=== PATIENT | male | born 1930 | race African-American/Black ===

== ENCOUNTER → 2017-11-11 | Outpatient (CLI) | payer OTHER ==
[~2017-11-11] MED LIST: ADALAT CC90 MG PO; APAP500 PO; COMBIGAN EYE DR10 ML OPHTHALMIC; ENALAPRIL MALEA20 MG PO; FINASTERIDE5 MG PO; MULTIVITAMINS PO; NORCO 5-325 TA1 EACH PO; OMEPRAZOLE20 M2 PO; PERCOCET 5-3251 EACH PO; PHENERGAN 25 MG25 M1 PO; SIMVASTATIN40 MG PO; TAMSULOSIN HCL0.4 M1 PO; ZOFRAN ODT4 MG PO
== END ==
LOC: CAT 08:46
DX: I10 Essential (primary) hypertension (principal); R19.4 Change in bowel habit

== ENCOUNTER 2018-03-07 14:12 | Inpatient (IN) | payer OTHER ==
[~2018-03-07] VITALS: Ht 170.2 cm; Wt 97.5 kg
[2018-03-07 14:27] VITALS: BP 158/100
[2018-03-07 14:46] LABS: ABSOLUTE NEUTROPHILS 7.1 thou/uL (1.4-8.2); BASOPHILS 0.8 % (0.0-2.0); HEMATOCRIT 39.7 % (42.0-52.0); HEMOGLOBIN 13.6 gm/dL (14.0-18.0); LYMPHOCYTES 16.1 % (24.0-44.0); MCH 29.7 pg (26.0-34.0); MCHC 34.3 g/dL (28.0-37.0); MCV 86.6 fL (80.0-100.0); MONOCYTES 9.9 % (1.0-8.0); PLATELET COUNT 227 thou/uL (150-400); POLYS 67.2 % (36.0-66.0); RBC 4.58 mil/uL (4.50-6.00); RDW 14.9 % (10.5-14.5); WBC 10.6 thou/uL (4.0-11.0)
[2018-03-07 14:55] LABS: ANION GAP 6 mmol/L (7-16); BUN 14 mg/dL (7-18); CALCIUM 9.6 mg/dL (8.5-10.1); CHLORIDE 104 mmol/L (98-107); CO2 34 mmol/L (21-32); CREATININE 1.3 mg/dL (0.7-1.3); GLUCOSE 136 mg/dL (74-106); POTASSIUM 4.3 mmol/L (3.5-5.1); SODIUM 144 mmol/L (136-145)
[2018-03-07 15:03] LABS: ALBUMIN 3.4 g/dL (3.4-5.0); SGOT 27 U/L (15-37); SGPT 21 U/L (30-65); TOTAL BILIRUBIN 0.4 mg/dL (<0.1-1.0); TROPONIN-I <0.06 ng/mL (<0.06)
[2018-03-07] MEDS ORDERED: TROSPIUM CHLORI60 MG PO (15:20)
[2018-03-07 16:42] VITALS: BP 130/88
[2018-03-07 18:10] VITALS: BP 124/75; BP 130/75
[2018-03-07 19:05] VITALS: BP 124/80
[2018-03-08 03:38] VITALS: BP 137/84
--- NOTE | 2018-03-08 03:46 | NUR ---
ASSESSMENT: PT REMAIN ALERT AND ORIENT TIMES FOUR. UP AD SIGRID WITH STEADY GAIT. DENIES PAIN. DOES HAVE AN OCCASSIONAL NON-PRODUCTIVE COUGH. VSS, AFEBRILE. SR PER MONITOR. PT STATE THAT HE IS [employer] AND WAS "TAKEN BACK" WHEN HE GOT HIS FINGER STUCK AT HS. 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 PT SEEMED TO UNDERSTAND BUT MOST INPORTANTALY, HIS ANXIETY LEVEL WAS LOWERED. LUNGS SOUNDS REMAIN SLIGHTLY WHEEZY BUT BETTER THAN EARLIER. GOOD PROGRESS TOWARDS DC GOALS, WILL CONTINUE TO MONITOR.
[2018-03-08 07:30] VITALS: BP 131/74
--- NOTE | 2018-03-08 16:18 | NUR ---
PT STABLE THROUGHOUT SHIFT. PT HAD NO COMPLAINTS, RESTING COMFORTABLY.
[2018-03-08 16:55] VITALS: BP 143/72
[2018-03-08 19:07] VITALS: BP 129/81
[2018-03-09 03:51] VITALS: BP 108/71
--- NOTE | 2018-03-09 06:40 | NUR ---
Assumed care at 1845. Pt resting in bed. Vitals stable. No identified needs at the moment. Will continue to monitor.
[2018-03-09 07:30] VITALS: BP 123/82
--- NOTE | 2018-03-09 08:41 | EKG ---
[address] [place] [address] ELECTROCARDIOGRAM REPORT Name: SP WILSON Room #: 461-P ADM IN M.R.#: [id number] Admission: 03/07/18 Attend Phys: Tiffani Smith Discharge: Date of : 32 Report #: [id number] THIS REPORT FOR: //name// [facility] ED Test Date: 2018-03-07 Test Time: 14:21:28 Pat Name: SP WILSON Department: Room: 461 Gender: M Plate Former: DENYS : 1930 Requested By: Gertrude Santos Order Number: [id number] MD: Sánchez Almodovar Measurements Intervals [place] Rate: 102 P: 35 SC: 182 QRS: 31 QRSD: 86 T: 61 QT: 254 QTc: 331 Interpretive Statements Sinus tachycardia Atrial premature complexes Low voltage, precordial leads Nonspecific ST and T wave abnormality Compared to ECG 03/14/2012 04:48:47 Atrial premature complex(es) now present T-wave abnormality now present Electronically Signed On 03-09-2018 8:40:54 [facility] CENTER ADMINISTRATOR by Sánchez Almodovar [email or web address] <ELECTRONICALLY SIGNED> By: Sánchez Almodovar MD, FACC 03/09/18 0840 1421 1421 Sánchez Almodovar MD, [facility] /EPI
--- NOTE | 2018-03-09 13:56 | NUR ---
PT ADMITTED RELATED TO HCAP, HYPOXIA. CM REVIEWED CHART AND SPOKE WITH CARE TEAM. CM MET WITH PT AT BEDSIDE THIS DAY. PT IS A&O X4. CM ROLE INTRODUCED. PT INDICATED HE LIVES IN A SPLIT LEVEL HOUSE WITH HIS SPOUSE WITH 3 STEPS TO ENTER AND 10 STEPS INSIDE. 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 PT INDICATED NO DME OR HH HX. PT INDICATED HE PLANS TO RETURN HOME ONCE MEDICALLY STABLE. CM TO FOLLOW INDICATED WITH DC PLANNING.
[2018-03-09 14:44] VITALS: BP 139/86
--- NOTE | 2018-03-09 18:43 | NUR ---
PT STABLE THROUGHOUT SHIFT. PT HAD NO COMPLAINTS, RESTING COMFORTABLY.
[2018-03-09 19:29] VITALS: BP 150/95
--- NOTE | 2018-03-09 21:58 | NUR ---
PROGRESS PT A/O X 4, VSS, LUNGS COARSE IN UPPER LOBES AND DIMINISHED IN LOWER LOBES. NO SOA NOTED. TELE INTACT READING SR ORDER OBTAINED TO DC AND TRANSFER PT TO [facility]. EVENING MEDS GIVEN ZOSYN HANGING AND INFUSING AT 25CC PER HOUR ORDERED INTO LEFT HAND SALINE LOCK. EYE DROPS MISSING, MISSING DOSE NOTE SENT TO PHARMACY REQUESTED EYE DROPS BE DELIVERED TO [facility]. PT ON 1 LITER O2 SATS IN UPPER 90'S. TRANSFERRED TO [facility] VIA WHEELCHAIR. REPORT GIVEN TO SAGAR MARTIN FROM [facility].
--- NOTE | 2018-03-10 02:55 | NUR ---
Pt transferred to unit @2140,oriented to room/call light. Pt ia A/OX4,up ad alejandra. Denies pain on assessment. Does has TRAYLOR,on O2 @1L/NC with a non productive cough. IV abts infusing on left hand IV without any problems noted. Voiding per urinal at night but normally ambulates to the BR during the day. Call light/personal items within reach. Resting quietly with eyes closed no distress noted. Will continue to monitor pt.
[2018-03-10 07:45] VITALS: BP 126/89
--- NOTE | 2018-03-10 08:19 | NUR ---
ASSUMED PT CARE AT 0700. ASSESSMENT COMPLETED AND IS CHARTED. VITAL SIGNS STABLE. O2 91% ON ROOM AIR. EXPIRATORY WHEEZES NOTED UPON AUSCULTATION. PT REPORTS OCCASIONAL PRODUCTIVE COUGH. NO ACUTE DISTRESS NOTED. PT IS ALERT/ORIENTED X4. DENIES PAIN AT THIS TIME. WILL CONTINUE CURRENT CARE.
[2018-03-10] MEDS ORDERED: AUGMENTIN 875-1 EACH PO (08:36)
[2018-03-10 09:24] VITALS: BP 126/89
--- NOTE | 2018-03-10 14:44 | NUR ---
DISCHARGE NOTE: SW reviewed chart and spoke with nursing and attending physician. Pt was [facility] to [facility] and is medically stable for discharge home today. Pt declined HH services. Pt's family to provide transportation home. No additional SW needs identified at this time, but is available to assist should needs arise.
== END 2018-03-10 11:00 | disposition home or self-care (01) | DRG 177 ==
LOC: ER 14:12 → EROBS 16:13 → 4W 16:13 → SICU 03-09 21:39 → ENTRNSPT 03-10 10:41 → EDTRNSPTSTS 03-10 10:45 → SICU 03-10 11:00
PROVIDERS: Nurse Practitioner Family; ADMIT Hospitalist
DX: J69.0 Pneumonitis due to inhalation of food and vomit (principal); J96.90 Respiratory failure, unspecified, unspecified whether with hypoxia or hypercapnia; K21.9 Gastro-esophageal reflux disease without esophagitis; I10 Essential (primary) hypertension; E78.00 Pure hypercholesterolemia, unspecified; Z96.612 Presence of left artificial shoulder joint; E78.5 Hyperlipidemia, unspecified; N40.0 Benign prostatic hyperplasia without lower urinary tract symptoms; K59.00 Constipation, unspecified; E66.9 Obesity, unspecified; Z68.33 Body mass index [BMI] 33.0-33.9, adult; Z85.46 Personal history of malignant neoplasm of prostate; Z98.42 Cataract extraction status, left eye; Z98.41 Cataract extraction status, right eye; Z79.899 Other long term (current) drug therapy
CPT/HCPCS: 10045; 15002

== ENCOUNTER 2018-03-31 09:29 | Inpatient (IN) | payer OTHER ==
[~2018-03-31] VITALS: Ht 170.2 cm; Wt 97.1 kg
[~2018-03-31 09:29] MED LIST changes: +AUGMENTIN 875-1 EACH PO; +TROSPIUM CHLORI60 MG PO
[2018-03-31 09:49] VITALS: BP 147/99
[2018-03-31 11:52] LABS: ABSOLUTE NEUTROPHILS 4.6 thou/uL (1.4-8.2); BASOPHILS 0.4 % (0.0-2.0); EOSINOPHILS 11.6 % (0.0-3.0); HEMATOCRIT 44.1 % (42.0-52.0); HEMOGLOBIN 14.6 gm/dL (14.0-18.0); LYMPHOCYTES 19.9 % (24.0-44.0); MCH 29.4 pg (26.0-34.0); MCHC 33.2 g/dL (28.0-37.0); MCV 88.5 fL (80.0-100.0); MONOCYTES 7.4 % (1.0-8.0); PLATELET COUNT 151 thou/uL (150-400); POLYS 60.7 % (36.0-66.0); RBC 4.99 mil/uL (4.50-6.00); WBC 7.6 thou/uL (4.0-11.0)
[2018-03-31 12:04] LABS: ALBUMIN 3.6 g/dL (3.4-5.0); CALCIUM 9.7 mg/dL (8.5-10.1); CREATININE 1.1 mg/dL (0.7-1.3); MAGNESIUM 1.9 mg/dL (1.8-2.4); POTASSIUM 3.3 mmol/L (3.5-5.1); TOTAL BILIRUBIN 0.4 mg/dL (<0.1-1.0); TOTAL PROTEIN 8.1 g/dL (6.4-8.2)
--- NOTE | 2018-03-31 14:09 | NUR ---
PT RECEIVED TO RM [address] CENTENO'S OFFICE ALERT W/ AUDIBLE WHEEZING. PT O2 SAT 90% ON RA. PLACED ON 2L NC. ASSISTED TO BED. PT NOT IN ACUTE DISTRESS. ASSESSMENT COMPLETED. THERAPEUTIC RECREATION ASSISTANT IN TO SEE PT AND STAT ORDERS RECEIVED. CT CHECT NEGATIVE. DR. CANCINO IN AND TALKED W/ PT ABOUT HAVING REACTIVE AIRWAY AND PLAN FOR TREATMENT. PT RESTING COMFORTABLY. ATE ALL OF LUNCH.
[2018-03-31 15:20] VITALS: BP 141/98
[2018-03-31 19:52] VITALS: BP 142/92
[2018-03-31 21:20] LABS: URINE BILIRUBIN NEGATIVE (Negative); URINE BLOOD NEGATIVE (Negative); URINE CLARITY CLEAR; URINE COLOR YELLOW; URINE GLUCOSE-RANDOM* NEGATIVE (Negative); URINE KETONES TRACE (Negative); URINE LEUKOCYTES-REFLEX NEGATIVE (Negative); URINE NITRITE-REFLEX NEGATIVE (Negative); URINE PROTEIN (DIPSTICK) NEGATIVE (Negative); URINE SPECIFIC GRAVITY 1.015 (1.005-1.035); URINE UROBILINOGEN 0.2 E.U./dl (0.2-1.0)
[2018-04-01 04:42] LABS: CALCIUM 9.3 mg/dL (8.5-10.1); CREATININE 1.3 mg/dL (0.7-1.3); MAGNESIUM 1.7 mg/dL (1.8-2.4); POTASSIUM 3.4 mmol/L (3.5-5.1)
[2018-04-01 04:46] VITALS: BP 142/32
[2018-04-01 04:49] LABS: ABSOLUTE NEUTROPHILS 11.3 thou/uL (1.4-8.2); HEMATOCRIT 40.3 % (42.0-52.0); HEMOGLOBIN 12.8 gm/dL (14.0-18.0); LYMPHOCYTES 8.4 % (24.0-44.0); MCH 27.9 pg (26.0-34.0); MCHC 31.7 g/dL (28.0-37.0); MONOCYTES 1.7 % (1.0-8.0); PLATELET COUNT 157 thou/uL (150-400); POLYS 89.9 % (36.0-66.0); RBC 4.58 mil/uL (4.50-6.00); RDW 14.9 % (10.5-14.5); WBC 12.6 thou/uL (4.0-11.0)
[2018-04-01 07:21] VITALS: BP 147/92
--- NOTE | 2018-04-01 07:26 | NUR ---
PATIENT IS PROGRESSING IN HIS CARE PLAN. VITAL SIGNS STABLE WITH PATIENT HAVING NO COMPLAINTS OF PAIN OR NAUSEA. FULLY ORIENTED, PATIENT IS ABLE TO CALL APPROPRIATELY FOR REQUESTS AND PARTICIPATE IN CARE. BREATHING STABLE ON HOME DOSE OF OXYGEN. PATIENT DOES HAVE AUDIBLE EXPIRATORY WHEEZES. SOLUMEDEROL Q6. UP MULTIPLE TIMES TO BATHROOM WITH STANDBY ASSISTANCE INCIDENT FREE. PATIENT APPEARS STRONG AND BALANCED WITH CANE. CONTINUE PLAN OF CARE.
[2018-04-01 11:26] VITALS: BP 126/86
--- NOTE | 2018-04-01 11:48 | NUR ---
PT ALERT AND ORIENTED THIS FOUR. VSS, 93%2L, SR ON TELE, DENIES PAIN. PT TOLERATES MEDS AND MEALS. PT WORKED WELL WITH PHYSICAL THERAPY WALKING AROUND THE UNIT. PLAN TO TRANSFER TO [facility] THIS SHIFT. PT SLOWLY PROGRESSING TOWERINS POC GOALS.
--- NOTE | 2018-04-01 12:02 | NUR ---
ASSESSMENT: CM REVIEWED CHART AND MET WITH PATIENT AT THE BEDSIDE. PT IS ALERT AND ORIENTED X4. PT WAS A DIRECT ADMIT FROM HIS PCP DUE TO PERSISTENT WHEEZING AND SOB. PT WAS RECENTLY HERE AT [facility] IN FEBRUARY. PT LIVES AT HOME WITH HIS IN A SPLIT LEVEL HOME HE REPORTS. PT STATES HE HAS ABOUT 5 STEPS WITH HANDRAILS AT EACH FLIGHT. PT REPORTS HE NORMALLY AMBULATES INDEPENDENTLY BUT DOES HAVE A CANE AT HOME HE TAKES WITH HIM IF HE AMBULATES LONG DISTANCES OUTSIDE THE HOME. PT REPORTS HE HAS NOT HAD HH IN THE PAST NOR BEEN TO A SNF/REHAB. PT STATES HE DOES NOT WEAR OXYGEN AT HOME OR HAVE A NEBULIZER BUT DOES HAVE SOME INHALERS. PT IS CURRENTLY WEARING OXYGEN. PT STATES HE HAS A GRAB BAR IN THE SHOWER AT HOME AND A WALK IN SHOWER. PT STATES HE IS INDEPENDENT WITH ADLS. CM DISCUSSED ROLE. PT STATES HE ANTICIPATES RETURNING HOME WITH NO NEEDS. CM WILL CONTINUE TO FOLLOW TO ASSIST NEEDED.
[2018-04-01 13:36] VITALS: BP 136/82
--- NOTE | 2018-04-01 13:44 | NUR ---
PATIENT ARRIVED TO [facility] AT 1330.PATIENT IS ABLE TO AMBULATE FROM W/C TO BED ON HIS OWN.PT HAS IV INTACT AND PATENT.O2 2L ON NC.PATIENT WAS ORIENTED TO ROOM AND UNIT.VITALS WERE TAKEN.PT HAS CALL LIGHT,PHONE, AND PERSONAL BELONGINGS WITHIN REACH.
[2018-04-01 21:00] VITALS: BP 134/86
--- NOTE | 2018-04-02 04:22 | NUR ---
Patient remains A&Ox4; Swallows meds whole w/o difficulty. Remains cont. B&B; Ambulates independently. Blood sugars WNL. 02 intact at 2LNC; no sob noted and color WNL. Resps even/unlabored and lungs course in all sinha. Duonebs, as ordered, w/o difficulty. Remains on IVABT/PNA; no adverse reactions noted. Non- productive cough noted. LFA saline lock noted; infused ABT/flushed w/o difficulty. Last BM 04/01/18, per patient. Patint has no c/o pain or discomfort, at this time. No s/s of acute distress noted. Patient asleep in bed w/ call light/desired belongings within reach. Po fluids encouraged. Will continue to monitor.
[2018-04-02 06:32] LABS: HEMATOCRIT 41.9 % (42.0-52.0); HEMOGLOBIN 13.9 gm/dL (14.0-18.0); MCHC 33.2 g/dL (28.0-37.0); MCV 87.6 fL (80.0-100.0); PLATELET COUNT 155 thou/uL (150-400); RBC 4.78 mil/uL (4.50-6.00); RDW 14.6 % (10.5-14.5)
[2018-04-02 06:37] LABS: CALCIUM 9.4 mg/dL (8.5-10.1); CREATININE 1.2 mg/dL (0.7-1.3); MAGNESIUM 1.9 mg/dL (1.8-2.4); POTASSIUM 3.7 mmol/L (3.5-5.1)
[2018-04-02 07:40] VITALS: BP 134/91
[2018-04-02 08:30] LABS: METAMYELOCYTES 1 %
[2018-04-02 08:31] LABS: ABSOLUTE NEUTROPHILS 16.6 thou/uL (1.4-8.2); ANISOCYTOSIS 1+
--- NOTE | 2018-04-02 10:18 | NUR ---
SW reviewed chart and spoke with nursing. Pt was [facility] to [facility] from . Pt is slowly progressing towards goals for discharge. Pt remains on IV abx. Therapy has discharged pt. Plan is for pt to return home when medically stable. JESSE is following to assist as needed with discharge planning.
--- NOTE | 2018-04-02 18:33 | NUR ---
ASSUMED CARE OF PATIENT AT 0715, PATIENT ALERT AND ORIENTED X 4. UP AD SIGRID IN ROOM TO BATHROOM. PATIENT DENIES PAIN THIS SHIFT. PAIENT HAS LEFT FOREARM IV IN PLACE, FLUSHED WITH NS AND REMAINS PATENT, PATIENT RECEIVED ZOSYN X 2 THIS SHIFT. PATIENT VOIDS PER URINAL. BLOOD SUGAR MONITORING ORDERED, INSULIN GIVEN PER S/S. PATIENT HAS NON-PRODUCTIVE COUGH, PATIENT HAS WHEEZES WITH BILATERAL LUNGS. O2 AT 2 LITERS/NC IN PLACE. PATIENT HAD CXR TODAY. WILL CONTINUE TO MONITOR.
[2018-04-02 19:27] VITALS: BP 158/92
--- NOTE | 2018-04-03 03:48 | NUR ---
ASSUMED CARAE AT SATRT OF SHIFT PT RESTING WELL , LOOSE COUGH OYED SPUTUM SAMPLE OBTAINEED AND SENT TO LAB , DENIES SOA AT TIME OF ASSESSMENT RECIEVING RESP TX ORDERED, RESTED WELL THROUGHOUT HOURLY ROUNDS, WILL CONITINUE WITH CURRENT PLAN OF CARE AND REPORT CHANGES OR ABNORMAL FINDINGS.
[2018-04-03 07:59] VITALS: BP 152/104
--- NOTE | 2018-04-03 10:51 | NUR ---
JESSE reviewed chart and spoke with nursing. Pt is progressing towards goals for discharge. Discharge anticipated for tomorrow. JESSE met with pt at bedside to discuss discharge plan-possible HH services. Pt is agreeable with HH services. JESSE confirmed pt's home address and phone number. Pt's PCP is Dr. Lynch. JESSE discussed need for possible home O2. Pt is hopeful to get off the O2 prior to discharge. Pt will need rest/exercise oximetry prior to discharge. Options provided for HH agencies. No preference voiced. JESSE faxed [facility] info to [facility] and notified [facility] liaison. Final discharge orders/summary will need to be faxed when available. Pt's family will provide transportation home. SW is available to assist should needs arise. [facility]--
[2018-04-03 11:56] VITALS: BP 152/104
--- NOTE | 2018-04-03 19:35 | NUR ---
ASSUMED CARE OF PATIENT AT 0715, PATIENT ALERT AND ORIENTED X 4. UP AD SIGRID IN ROOM, WITH USE OF CANE. PATIENT DENIES PAIN THIS SHIFT. PATIENT HAS LEFT FOREARM IV IN PLACE, RECEIVED ZOSYN THIS AM, DISCONTINUED, NOW ON PO ANTIBIOTIC STARTING TONIGHT. PATIENT ALSO RECEIVES SOLU MEDROL IV QID. PATIENT OXYGEN REMOVED DURING THIS SHIFT, RT CHECKING SATURATION AND HAS BEEN ABOVE 90%, PATIENT WILL HAVE RT SATURATION REST/EXERCISE TOMORROW PRIOR TO DISCHARGE. PATIENT HAS NON-PRODUCTIVE COUGH, RECEIVES BREATHING TREATMENTS [id number]. PATIENT MAY DISCHARGE TOMORROW. WILL CONTINUE TO MONITOR.
[2018-04-03 19:50] VITALS: BP 139/94
--- NOTE | 2018-04-04 03:13 | NUR ---
PATIENT ALERT AND ORIENTED X4. UP FROM CHAIR TO BED WITH ASSIST OF CANE ONLY. DENIES PAIN. BS MONITORED PER ORDER. PLEASANT AND COOPERATIVE. WILL MONITOR.
[2018-04-04 06:15] LABS: ABSOLUTE NEUTROPHILS 10.5 thou/uL (1.4-8.2); BASOPHILS 0.1 % (0.0-2.0); HEMATOCRIT 41.4 % (42.0-52.0); HEMOGLOBIN 13.4 gm/dL (14.0-18.0); LYMPHOCYTES 9.5 % (24.0-44.0); MCH 28.3 pg (26.0-34.0); MCHC 32.4 g/dL (28.0-37.0); MCV 87.5 fL (80.0-100.0); MONOCYTES 8.5 % (1.0-8.0); PLATELET COUNT 141 thou/uL (150-400); POLYS 81.9 % (36.0-66.0); RBC 4.73 mil/uL (4.50-6.00); RDW 14.9 % (10.5-14.5); WBC 12.8 thou/uL (4.0-11.0)
[2018-04-04] MEDS ORDERED: K-DUR 20 MEQ T20 MEQ PO (08:57)
[2018-04-04] MEDS ORDERED: IPRAT-ALBUT 0.5-3 ML INH (08:57)
[2018-04-04] MEDS ORDERED: MAGNESIUM400 MG PO (08:57)
[2018-04-04] MEDS ORDERED: ACIDOPHILUS1 EAC4 PO (08:57)
[2018-04-04] MEDS ORDERED: PREDNISONE 20 M20 M1 PO (08:57)
[2018-04-04] MEDS ORDERED: TIMOLOL MALEATE5 M1 OPHTHALMIC (08:57)
[2018-04-04] MEDS ORDERED: AUGMENTIN 875-1 EACH PO (08:57)
[2018-04-04] MEDS ORDERED: MUCINEX600 MG PO (08:57)
[2018-04-04] MEDS ORDERED: COLACE 100 MG100 MG PO (08:57)
[2018-04-04 09:00] VITALS: BP 145/101
--- NOTE | 2018-04-04 12:10 | NUR ---
ASSUMED PATIENT AND CARES AT 0715, PATIENT LYING IN BED WOKE A&OX4, EXPRESSED NO CONCERNS AT THIS TIME, DENIES PAIN OR DISCOMFORT, SALINE LOCK LEFT FOREARM INTACT, UP PER CANE INDEPENDENTLY, INDEPENDENT WITH ADLS, PERSONAL BELONGINGS AND CALL LIGHT IN REACH, WILL CONTINUE TO MONITOR
--- NOTE | 2018-04-04 14:28 | NUR ---
PATIENT DISCHARGED AT 1415 FROM SICU 222 TO HOME WITH HH, PATIENT REMAINS STABLE, VSS, NURSE WENT OVER DISCHARGE INSTRUCTIONS AND MEDICATIONS WITH BOTH PATIENT AND FAMILY MEMBER, FAMILY MEMBER EXPRESSED UNDERSTANDING, PATIENT REQUIRED EXTRA TIME TO HAVE UNDERSTANDING, ENCOURAGED FAMILY MEMBER TO CALL FOR ANY QUESTIONS, IV REMOVED AND REPLACED WITH GAUZE AND TAPE, PERSONAL BELONGINGS TAKEN WITH PATIENT, SHOT EXAMINER WHEELED PATIENT TO THE CAR
[2018-04-04 14:33] VITALS: BP 144/99
[2018-04-04 22:07] LABS: ADENOVIRUS Negative (Negative); INFLUENZA A Negative (Negative); INFLUENZA B Negative (Negative); METAPNEUMOVIRUS Negative (Negative); PARAINFLUENZA 1 Negative (Negative); PARAINFLUENZA 2 Negative (Negative); PARAINFLUENZA 3 Negative (Negative); RHINOVIRUS Negative (Negative); RSV A Negative (Negative); RSV B Negative (Negative)
== END 2018-04-04 14:15 | disposition home health service (06) | DRG 871 ==
LOC: SICU 09:29 → 3W 09:29 → SICU 04-01 12:34
PROVIDERS: Nurse Practitioner; ADMIT Internal Medicine
DX: A41.9 Sepsis, unspecified organism (principal); J96.01 Acute respiratory failure with hypoxia; J15.6 Pneumonia due to other Gram-negative bacteria; J44.1 Chronic obstructive pulmonary disease with (acute) exacerbation; J44.0 Chronic obstructive pulmonary disease with (acute) lower respiratory infection; I10 Essential (primary) hypertension; E78.5 Hyperlipidemia, unspecified; N40.0 Benign prostatic hyperplasia without lower urinary tract symptoms; K21.9 Gastro-esophageal reflux disease without esophagitis; E78.00 Pure hypercholesterolemia, unspecified; Z96.612 Presence of left artificial shoulder joint; J45.909 Unspecified asthma, uncomplicated; K59.00 Constipation, unspecified; E87.6 Hypokalemia; E83.42 Hypomagnesemia; D72.829 Elevated white blood cell count, unspecified; E66.9 Obesity, unspecified; Z85.46 Personal history of malignant neoplasm of prostate; Z98.42 Cataract extraction status, left eye; Z98.41 Cataract extraction status, right eye; Z68.33 Body mass index [BMI] 33.0-33.9, adult; Z79.899 Other long term (current) drug therapy
CPT/HCPCS: 10879; 15002

== ENCOUNTER 2018-09-09 08:57 | Inpatient (IN) | payer OTHER ==
[~2018-09-09] VITALS: Ht 172.7 cm; Wt 97.5 kg
[~2018-09-09 08:57] MED LIST changes: +ACIDOPHILUS1 EAC4 PO; +COLACE 100 MG100 MG PO; +IPRAT-ALBUT 0.5-3 ML INH; +K-DUR 20 MEQ T20 MEQ PO; +MAGNESIUM400 MG PO; +MUCINEX600 MG PO; +PREDNISONE 20 M20 M1 PO; +TIMOLOL MALEATE5 M1 OPHTHALMIC
[2018-09-09 08:58] VITALS: BP 100/66
[2018-09-09 09:38] LABS: ABSOLUTE NEUTROPHILS 8.2 thou/uL (1.4-8.2); EOSINOPHILS 0.8 % (0.0-3.0); HEMATOCRIT 41.6 % (42.0-52.0); HEMOGLOBIN 13.7 gm/dL (14.0-18.0); LYMPHOCYTES 9.3 % (24.0-44.0); MCH 28.9 pg (26.0-34.0); MCHC 32.9 g/dL (28.0-37.0); MCV 87.9 fL (80.0-100.0); MONOCYTES 10.4 % (1.0-8.0); PLATELET COUNT 193 thou/uL (150-400); POLYS 78.5 % (36.0-66.0); RBC 4.73 mil/uL (4.50-6.00); RDW 14.5 % (10.5-14.5); WBC 10.5 thou/uL (4.0-11.0)
[2018-09-09 09:47] LABS: CALCIUM 10.6 mg/dL (8.5-10.1); CREATININE 1.5 mg/dL (0.7-1.3); POTASSIUM 3.3 mmol/L (3.5-5.1)
[2018-09-09 09:53] LABS: ALBUMIN 3.7 g/dL (3.4-5.0); TOTAL BILIRUBIN 0.5 mg/dL (<0.1-1.0)
[2018-09-09 10:06] LABS: URINE BLOOD NEGATIVE (Negative); URINE CLARITY CLEAR; URINE COLOR YELLOW; URINE GLUCOSE-RANDOM* NEGATIVE (Negative); URINE KETONES TRACE (Negative); URINE LEUKOCYTES-REFLEX TRACE (Negative); URINE NITRITE-REFLEX NEGATIVE (Negative); URINE PROTEIN (DIPSTICK) TRACE (Negative); URINE UROBILINOGEN 0.2 E.U./dl (0.2-1.0)
[2018-09-09 10:07] LABS: ICTOTEST (BILI CONFIRMATORY) Negative (Negative); URINE BILIRUBIN NEGATIVE (Negative)
[2018-09-09 13:23] VITALS: BP 137/77
[2018-09-09 13:48] LABS: MAGNESIUM 1.8 mg/dL (1.8-2.4)
[2018-09-09 14:59] VITALS: BP 132/77
[2018-09-09 15:30] VITALS: BP 148/78
[2018-09-10 04:40] VITALS: BP 153/78
--- NOTE | 2018-09-10 06:26 | O ---
[facility] [place] [address] OPERATIVE REPORT Name: SP WILSON Room #: 457-P [facility] IN .R.#: [id number] Admission: 09/09/18 Attend Phys: Danny Tarango MD Discharge: Date of : 32 Report #: [id number] THIS REPORT FOR: //name// CC: Danny Lynch DATE OF SERVICE: 09/09/2018 PREOPERATIVE DIAGNOSIS: Acute appendicitis. POSTOPERATIVE DIAGNOSIS: Acute perforated appendicitis. OPERATION: Laparoscopic appendectomy. SURGEON: Nehemiah Medel MD ANESTHESIA: General. ESTIMATED BLOOD LOSS: Minimal. SPECIMEN: Appendix. DESCRIPTION OF PROCEDURE: After informed consent was obtained, the patient was brought to the operating room and placed supine. SCDs were placed and working, preoperative antibiotics were administered, general anesthesia was induced. The abdomen was prepped and draped in the usual sterile fashion. A 10 mm incision was made above the umbilicus. Fascia was incised and a trocar was placed. Pneumoperitoneum was established. An right upper quadrant and left lower quadrant 5 mm ports were placed. The right lower quadrant was examined. The appendix was noted to be perforated. There was an exposed fecalith. I was able to dissect out the base of the appendix. It was stapled off with a MONA blue load stapler. The tip of the appendix was somewhat obliterated. The area was then suctioned out. The appendix and fecalith were placed into an Endopouch and removed. The fascia was closed with a [id number] 0 Vicryl. Skin was closed with 4-0 Monocryl. Incisions were sealed with Dermabond. COMPLICATIONS: None. DISPOSITION: The patient was taken to recovery in satisfactory condition. <ELECTRONICALLY SIGNED> By: Nehemiah Medel MD 09/10/18 0626 1817 1856 Nehemiah Medel MD /nt
[2018-09-10 07:08] VITALS: BP 123/78
[2018-09-10 09:17] LABS: HEMATOCRIT 35.1 % (42.0-52.0); MCH 28.7 pg (26.0-34.0); MCHC 32.5 g/dL (28.0-37.0); MCV 88.2 fL (80.0-100.0); RBC 3.98 mil/uL (4.50-6.00); RDW 14.6 % (10.5-14.5); WBC 13.2 thou/uL (4.0-11.0)
[2018-09-10 09:22] LABS: HEMOGLOBIN 11.4 gm/dL (14.0-18.0)
[2018-09-10 09:31] LABS: ALBUMIN 2.6 g/dL (3.4-5.0); CALCIUM 8.8 mg/dL (8.5-10.1); CREATININE 1.3 mg/dL (0.7-1.3); MAGNESIUM 1.8 mg/dL (1.8-2.4); PHOSPHORUS 2.8 mg/dL (2.5-4.9); POTASSIUM 3.3 mmol/L (3.5-5.1)
--- NOTE | 2018-09-10 09:32 | NUR ---
PROGRESS PT A/O X 4 VSS LAP SITES X3 TO ABDOMEN WELL APPROXIMATED WITH NO DRAINAGE. BOWELS SOUNDS NORMOACTIVE DENIES FLATUS ABDOMEN ROUNDED AND PT REPORTS SOME PRESSURE. VOIDNG QS IVF'S AND IV ANTIBIOTICS INFUSING ORDERED, ATE A REG DIET LAST NIGHT WITH NO DIFFICULTY CONTINUE POC.
--- NOTE | 2018-09-10 11:10 | NUR ---
Nutrition: Pt seen for obesity consult. Admitted for acute appendicitis, s/p lap appendectomy yesterday, 09/09. On a regular diet, reports he tolerated breakfast well. No pain, no nausea per pt. BMI 32.7. Given advanced age of 88 and recent surgery, focused on general healthy eating principles. Hx HTN, high cholesterol. Educated on heart healthy fats to choose small amounts of given high calorie value. Encouraged lots of fresh fruits and vegetables and provided details about fat content of various protein/animal products to help guide better decision making and leaner choices at home. No further nutrition questions from pt. Remains low nutrition risk.
[2018-09-10 16:53] VITALS: BP 136/81
--- NOTE | 2018-09-10 17:04 | NUR ---
PT ADMITTED RELATED TO ACUTE APPENDICITIS; S/P LAPAROSCOPIC APPENDECTOMY 09/09/18. CM REVIEWED CHART AND SPOKE WITH CARE TEAM. CM MET WITH PT AT BEDSIDE THIS DAY. PT IS A&O X4. CM ROLE INTRODCUED. PT INDICATED HE LIVES IN A HOUSE WITH HIS SPOUSE WITH 4 STEPS TO ENTER AND 4 STEPS INSIDE. 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 PT INDICATED HE PLANS TO RETURN HOME ONCE MEDICALLY STABLE. PT IS TO HAVE LAP APPE. CM TO FOLLOW INDICATED WITH DC PLANNING.
[2018-09-10 20:06] VITALS: BP 148/93
[2018-09-11 05:19] LABS: ABSOLUTE NEUTROPHILS 10.2 thou/uL (1.4-8.2); BASOPHILS 0.1 % (0.0-2.0); EOSINOPHILS 0.3 % (0.0-3.0); HEMATOCRIT 37.5 % (42.0-52.0); HEMOGLOBIN 12.4 gm/dL (14.0-18.0); LYMPHOCYTES 6.4 % (24.0-44.0); MCH 28.9 pg (26.0-34.0); MCHC 32.9 g/dL (28.0-37.0); MCV 87.7 fL (80.0-100.0); MONOCYTES 7.9 % (1.0-8.0); PLATELET COUNT 164 thou/uL (150-400); POLYS 85.3 % (36.0-66.0); RBC 4.28 mil/uL (4.50-6.00); RDW 14.4 % (10.5-14.5); WBC 11.9 thou/uL (4.0-11.0)
[2018-09-11 05:31] LABS: CALCIUM 8.8 mg/dL (8.5-10.1); CREATININE 1.2 mg/dL (0.7-1.3); MAGNESIUM 1.8 mg/dL (1.8-2.4); POTASSIUM 3.3 mmol/L (3.5-5.1)
[2018-09-11 08:00] VITALS: BP 140/89
--- NOTE | 2018-09-11 08:52 | NUR ---
PROGRESS PT A/O X4 UP WITH SBA. LUNGS CLEAR VSS, ABDOMEN VERY DISTENDED WITH DISTANT BOWELS SOUNDS REPORTED FEELING NAUSEOUS ON AND OFF THROUGHOUT SHIFT SCHEDULED REGLAN AND PRN ZOFRAN GIVEN WITH SOME EFFECT. BELCHING BUT DENIES FLATUS IN TO EVALUATE THIS AM AND MADE HIM NPO. CONTINUE TO MONITOR.
--- NOTE | 2018-09-11 14:06 | PATH ---
[facility] [address] [place] [address] PATHOLOGY RPT PROCEDURE Name: SP WILSON Room #: 457-P [facility] [place] M.R.#: [id number] Admission: 09/09/18 Date of : 32 Discharge: Report #: [id number] Path Case #: [id number] [facility] Accession Number: [id number] . 01 Material submitted: . appendix - APPENDIX . 01 Clinical history: . Acute appendicitis Perforated appendicitis . 01 Frozen section diagnosis: . . /QMS . 02 Diagnosis: Appendix, appendectomy: - Marked acute appendicitis along with marked acute serositis. (IUV:devyn; 09/11/2018) QMS/09/11/2018 . 02 Electronically signed: . Lizbet Ross MD, Pathologist NPI- [id number] . 01 Gross description: . The specimen is received in formalin, labeled "Wilson, Sp, appendix" and consists of an appendix measuring 2.9 cm in length and ranging from 0.5-0.8 cm in diameter. The margin is closed with a line of shira and inked black. The serosa is patterson-brown, ragged, and hemorrhagic. Sectioning reveals a possible disruption of the tip. The appendix is entirely submitted in A1. (SDY; 09/10/2018) SYU/SYU . 02 Pathologist provided ICD-10: K35.80 . 02 CPT . 642973 Specimen Comment: A courtesy copy of this report has been sent to Specimen Comment: [phone], , . Specimen Comment: Report sent to , and Performed at: 01 [facility] [address] [id number] MD Zeke Guerrero MD Phone: [phone] [address] [address] [place] [address] PATHOLOGY RPT PROCEDURE Name: SP WILSON Room #: 457-P [facility] [place] M.R.#: [id number] Admission: 09/09/18 Date of : 32 Discharge: Report #: [id number] Path Case #: [id number] Performed at: [address] [id number] MD Lizbet Ross MD Phone: [phone]
[2018-09-11 15:00] VITALS: BP 151/93
--- NOTE | 2018-09-11 16:47 | NUR ---
CARE TEAM INDICATED THAT PT IS PROGRESSING SLOWLY AFTER LAPAROSCOPIC APPENDECTOMY. CARE TEAM INDICATED THAT PT WILL REMAIN HERE OVER THE WEEKEDEND. CM TO FOLLOW INDICATED WITH DC PLANNING.
[2018-09-11 18:50] VITALS: BP 149/93
--- NOTE | 2018-09-11 18:51 | NUR ---
Received awake on bed. Due medications given as prescribed. Pt on NPO as per doctor's order since pt's abdomen is distended; unable to pass flatus, no nausea and no vomiting noted. A+Ox4. On O2 at 3lpm via nasal cannula. Pt able to use urinal and go to toilet to pass urine. With NS at 125cc/hr, infusing well at L Wrist. Pt with 3 lap sites- C/D/I, no signs of infection, with dermabond. Pt seen by Dr Swann- ordered Bisacodyl suppository- given as prescribed, pt tried 2x to go to the toilet and try to open bowels but to no avail. Pt able to ambulate with gait belt and minimum to standby assist. No nausea and vomiting noted the whole shift. 2 bags of KCL piggyback given as prescribed. Vital signs stable the whole shift. Pt seen by Dr Swann again this afternoon, update given to pt and relatives.
[2018-09-11 23:51] VITALS: BP 147/75
--- NOTE | 2018-09-12 01:49 | NUR ---
PATIENT ALERT AND ORIENTED X4. UP WITH SBA TO BATHROOM. GIVEN SUPPOSITORY, HOWEVER, NO BM AT TIME OF NOTE. PATIENT IS PASSING GAS. IVF INFUSING W/O COMPLICATION. 2LNC IN PLACE WITH NO SOA NOTED. NO C/O NAUSEA OR VOMITING. DENIES PAIN. REMAINS NPO EXCEPT MEDICATION. RESTING QUIETLY. WILL MONITOR.
[2018-09-12 03:33] VITALS: BP 146/94
[2018-09-12 05:07] LABS: HEMOGLOBIN 12.2 gm/dL (14.0-18.0); MCH 29.2 pg (26.0-34.0); MCHC 33.1 g/dL (28.0-37.0); MCV 88.2 fL (80.0-100.0); RBC 4.2 mil/uL (4.50-6.00); RDW 14.8 % (10.5-14.5)
[2018-09-12 05:19] LABS: CREATININE 1.2 mg/dL (0.7-1.3); POTASSIUM 3.7 mmol/L (3.5-5.1)
[2018-09-12 07:08] VITALS: BP 157/84
--- NOTE | 2018-09-12 11:44 | NUR ---
Received awake on bed. Due medications given as prescribed. A+Ox4. On O2 at 3lpm via nasal cannula. Able to ambulate using gait belt with minimal to stand by assist to the bathroom. With NS at 125cc/hr, infusing well at L wrist- patent and flushing well. Pt still unable to open bowels but able to pass flatus in very small amount. Pt still on NPO except medications- stomach stll distended. Pt with 3 abdominal lap sites with dermabond- C/D/I, no signs of infection. Pt assessed for pain, pain scale in 2-3, doesn't want any pain medications as of the moment. Reviewed patient's chart and orders last night, saw that med rec was not done- nurse in charge yesterday informed and put medications for review. Pt asked re: current medications he's taking, pt unable to recall and will ask relatives to bring medication list- Dr Tarango informed re: incident(med rec not done since admission) and will look through patient's medications today. Vital signs stable.
[2018-09-12 13:47] VITALS: BP 146/83
[2018-09-12 19:35] VITALS: BP 154/76
[2018-09-13 04:34] LABS: HEMATOCRIT 35.2 % (42.0-52.0); HEMOGLOBIN 11.7 gm/dL (14.0-18.0); MCH 29.2 pg (26.0-34.0); MCHC 33.1 g/dL (28.0-37.0); RDW 14.4 % (10.5-14.5); WBC 7.9 thou/uL (4.0-11.0)
[2018-09-13 04:44] LABS: CALCIUM 8.8 mg/dL (8.5-10.1); POTASSIUM 3.3 mmol/L (3.5-5.1)
--- NOTE | 2018-09-13 04:47 | NUR ---
PATIENT ALERT AND ORIENTED X4. NG PLACED BEFORE CHANGE OF SHIFT, HOWEVER, IT CAME OUT OR WAS INADVERTENTLY REMOVED. ANOTHER NG WAS PLACED AND XRAY CONFIRMED PLACEMENT. WALL SUCTION WAS NOT ADEQUATE AND A GOO SUCTION SYSTEM WAS PUT IN PLACE ON LIS WITH VERY GOOD RESULTS. DENIES PAIN. VOIDING PER URINAL. IVF INFUSING W/O COMPLICATION. WILL MONITOR.
[2018-09-13 08:00] VITALS: BP 172/89
[2018-09-13 15:00] VITALS: BP 181/82
--- NOTE | 2018-09-13 15:51 | NUR ---
PT A&OX4, IV INTACT INFUSING FLUIDS W/O COMPS. UP WITH ASSIST X1. NG TO LIS HAS DRAINED 900ML OF DARK GREEN BILE. NPO EXCEPT FOR FWE ICE CHIPS AND SIPS OF WATER WITH MEDS. O2@2L PER NC. HAS SAT IN CHAIR MOST OF THE DAY. CALL LIGHT W/I REACH. FAMILY AT BEDSIDE.
[2018-09-13 19:49] VITALS: BP 155/90
--- NOTE | 2018-09-14 03:59 | NUR ---
PATIENT ALERT AND ORIENTED X4. [facility] AT BEDSIDE IN EARLY EVENING. COOPERATIVE WITH CARE. DENIES PAIN. IVF INFUSING W/O COMPLICATION. NG TO LIS WITH GOOD RESULTS OF DARK BROWNISH DRAINAGE. REMAINS NPO EXCEPT MEDS. DENIES N/V. SCD'S IN PLACE. RESTING QUIETLY. WILL MONITOR.
[2018-09-14 05:08] VITALS: BP 143/90
[2018-09-14 05:49] LABS: HEMATOCRIT 35.4 % (42.0-52.0); HEMOGLOBIN 11.6 gm/dL (14.0-18.0); MCH 28.7 pg (26.0-34.0); MCHC 32.7 g/dL (28.0-37.0); MCV 87.7 fL (80.0-100.0); RBC 4.04 mil/uL (4.50-6.00); RDW 14.8 % (10.5-14.5); WBC 5.1 thou/uL (4.0-11.0)
[2018-09-14 06:00] LABS: CALCIUM 8.4 mg/dL (8.5-10.1); CREATININE 0.9 mg/dL (0.7-1.3)
[2018-09-14 06:02] LABS: POTASSIUM 2.8 mmol/L (3.5-5.1)
[2018-09-14 08:45] VITALS: BP 141/95
--- NOTE | 2018-09-14 11:56 | NUR ---
Received awake on bed. Due medications given as prescribed. A+Ox4. With NS at 125cc/hr, infusing well at L wrist. With NG tube in place connected to intermittent suction- with brownish-greenish drainage. Pt able to ambulate to the bathroom. Passing flatus in small amounts but still no bowel movememt despite suppository.
--- NOTE | 2018-09-14 15:56 | NUR ---
CARE TEAM INDICATED THAT PT NOW HAS POST OP ILLIUS. PT HAS NG IN PLACE. PT IS SLOWLY PROGRESSING TOWARD GOAL OF DISCHARGE. CM TO FOLLOW INDICATED WITH DC PLANNING.
[2018-09-14 19:02] VITALS: BP 152/85
--- NOTE | 2018-09-15 00:04 | NUR ---
Assumed pt care at 1900. Pt A/OX4,pleasant. Denies pain on assessment,pt abd still distended but pt verbalizes feeling a little better and less firm. Aspirated 150ml green residual @ 2345. Denies N/V,ice chips offered per request.Pt ambulated on the hallway with staff X1 before going to bed. Will continue to encourage pt to ambulate more. NG clamped at this time. Resting quietly O2 on @ 2L/NC. Fall precautions in place will continue to monitor pt.
[2018-09-15 08:00] VITALS: BP 145/93
--- NOTE | 2018-09-15 12:41 | NUR ---
Received awake on bed. Due medications given as prescribed. A+Ox4. With IVF of NS at 125cc/hr, infusing well via left wrist; ongoing Potassium IV correction(2/2) bag then for repeat K level after 1 hour. With O2 at 2lpm via nasal cannula. With NG tube- clamped and checked for drainage every 6 hours. Pt still unable to open bowels. Encourage to ambulate. Pt seen by Dr Swann- small bowel studies ordered- xray aware, will do procedure between 10-11am. Pt went down for Small bowel studies at 10am, came back to [facility] at 11am, as per radiology staff, not to use NG for the meantime, keep pt sitting on the chair and will do further xrays at the [place]. Vital signs stable. Still on NPO except medications, pt having ice chips as well. Pt's abdomen still distended, NG drainage checked every 6 hours- output measured and recorded. Ambulating with Stand by assist, Assisted in ADLs. IVF shifted to D5 0.45NS + 10 meqs KCL to run for 80cc/hr- started as prescribed.
[2018-09-15 15:00] VITALS: BP 176/85
[2018-09-15 20:35] VITALS: BP 164/95
--- NOTE | 2018-09-16 03:38 | NUR ---
Assumed pt care at 1900, A/OX4,VSS. Pt denies pain on assessment. No N/V so far, NG tube patent connected to LIS,draining moderate greenish/bile drainage. Abdomen less distended and not to firm,belching but not passing flatus but verbalizes feeling better overall. Resting quietly O2 in place with no distress noted.Voiding per urinal without difficulty,will continue to monitor pt.
[2018-09-16 07:45] VITALS: BP 143/87
--- NOTE | 2018-09-16 14:14 | NUR ---
Received awake on bed. Due medications given as prescribed. A+O, On O2 at 2lpm via nasal cannula. With IVF at 80cc/hr, infusing well at L wrist. With NG tube- clamped, checked residual every 6 hours. Assisted in ADLs. Had PT session today. Able to sit out in chair. Able to go to the toilet, with gait belt and stand by assist. Able to have bowel movement today as per Night staff, Dr mcmahon aware. Falls risk- falls bundle in place.
[2018-09-16 14:37] VITALS: BP 138/61
[2018-09-16 21:25] VITALS: BP 145/61
[2018-09-17 03:05] VITALS: BP 145/83
[2018-09-17 05:14] LABS: HEMATOCRIT 35.5 % (42.0-52.0); HEMOGLOBIN 11.8 gm/dL (14.0-18.0); MCH 28.9 pg (26.0-34.0); MCHC 33.1 g/dL (28.0-37.0); RBC 4.08 mil/uL (4.50-6.00); RDW 14.3 % (10.5-14.5); WBC 7.9 thou/uL (4.0-11.0)
[2018-09-17 05:27] LABS: CALCIUM 8.7 mg/dL (8.5-10.1); CREATININE 1.1 mg/dL (0.7-1.3)
[2018-09-17 05:37] LABS: MAGNESIUM 1.8 mg/dL (1.8-2.4); PHOSPHORUS 2.9 mg/dL (2.5-4.9)
[2018-09-17 05:52] LABS: POTASSIUM 2.9 mmol/L (3.5-5.1)
[2018-09-17 07:23] VITALS: BP 126/87
--- NOTE | 2018-09-17 07:52 | NUR ---
Assumed pt care at 1900.Pt A/OX4,VSS,denies pain N/V on assessment. Pt had NG in place with Q6 residual checks. rounded this morning on pt;ordered NG to de discontinued if residual at 0600 less than 100cc. Upon aspiration residual 25cc,pt informed on Dr's orders and agreeable with it. NG tube discontinued at 0700,pt tolerated well c/o of some soreness around nare but requested to wait and see if it goes away before taking any pain meds. Pt's K+ this am 2.9,Neftali notified follow electrolyte protocol. IVF infusing via LFA without problems. Resting w/o O2 on at 2L/NC.Fall precautions in place.
--- NOTE | 2018-09-17 10:16 | NUR ---
Nutrition recs: 1) If gut function starting to return and able to feed gut safely, recommend starting po diet as able if medically appropriate. *NPO status x 6 days, today starts day 7 with no-minimal nutrition 2) If unable to use gut and NPO anticipated to continue, consider TPN if thought to be needed for at least 5 day duration for beneficial outcome per ASPEN. 3) In event diet unable to start in the next 1-2 days and TPN indicated, would recommend standard TPN D15%, AA5%, 2.9% lipids with goal rate 80 ml/hr reached slowly over 2-3 day duration to minimize refeeding chances. Would meet 98% high-end energy needs, 100% goal protein needs at 1 g/kg.
[2018-09-17 13:18] VITALS: BP 140/99
--- NOTE | 2018-09-17 14:13 | NUR ---
PT IS PROGRESSING TOWARD GOAL OF DISCHARGE. PT'S NG WAS CLAMPED AND THERAPY HAS INDICATED THAT PT WILL LIKELY BE MEDICALLY STABLE TO DC HOME ONCE MEDICALLY STABLE. CM TO FOLLOW INDICATED WITH DC PLANNING.
[2018-09-17 21:01] VITALS: BP 125/76
[2018-09-18 03:31] LABS: HEMATOCRIT 35.5 % (42.0-52.0); HEMOGLOBIN 11.7 gm/dL (14.0-18.0); MCH 28.8 pg (26.0-34.0); MCHC 32.8 g/dL (28.0-37.0); MCV 87.8 fL (80.0-100.0); RBC 4.05 mil/uL (4.50-6.00); RDW 14.3 % (10.5-14.5); WBC 7.7 thou/uL (4.0-11.0)
[2018-09-18 03:38] LABS: CALCIUM 8.9 mg/dL (8.5-10.1)
[2018-09-18 03:43] LABS: POTASSIUM 2.8 mmol/L (3.5-5.1)
--- NOTE | 2018-09-18 04:52 | NUR ---
Assumed pt care at 1900. Pt was on the chair for a while and did ambulate on the hallway X2 before going to bed. Denies pain,N/V. Did have a small soft BM and passing a lot of flatus. A/OX4,VSS. Pt's K+ this morning is 2.8,being replaced per electrolytes protocol. Resting with no distress oxygen on at 2L/NC,will continue to monitor pt. Fall precautions implemented.
[2018-09-18 08:03] VITALS: BP 150/76
[2018-09-18 15:40] VITALS: BP 150/76
--- NOTE | 2018-09-18 15:40 | NUR ---
CARE TEAM INDICATED THAT PT MAY BE MEDICALLY STABLE TO DC HOME OVER THE WEEKEND. [facility] IS ABLE TO ACCEPT PT FOR HH SERVICES UPON DC. THEY ARE AWARE OF POSSIBLE WEEKEND DC. NO OTHER CM INTERVENTION INDICATED. CM ABLE TO ASSIST SHOULD ANY DC NEEDS ARISE.
[2018-09-18 16:15] VITALS: BP 148/68
--- NOTE | 2018-09-18 18:40 | NUR ---
Assumed pt care this am pt was on npo taking ice chips. flatus present abdomen slightly distended. Pt is able to ambulate with a steady gait with 1 assists. Pt had difficulty having a bm, suppository given and had a large bm after. Started on clear liquids to advance as tolerated,poc followed. No signs or verbalizations of distress have been noted. Pt is to transfer to [address] [place] [address] endorse to the night nurse.
[2018-09-18 19:20] VITALS: BP 143/77
[2018-09-18 21:50] VITALS: BP 147/98
--- NOTE | 2018-09-19 00:27 | NUR ---
PT TRANSFERED FROM [facility]. PT ARRIVED THE UNIT @ AROUND 2014. PT IS A+OX4. AMBULATES WITH 1 ASSIST AND A WALKER TO . PT USES A URINAL INDEPENDENTLY. ASSESSMENT WAS COMPLETED. PT HAS A DISTENDED BELLY THAT IS SLIGHTLY FIRM. PT RECIEVED A SUPP. AND HAD A SMALL BM. NO C/O DISCOMFORT. PT IS ON 2LITERS OF O2 BASELINE AND SATS ARE WNL. PT SHOWS NO SIGN OF DISTRESS. EDUCATION ON THE INCENTIVE SPIROMETER WAS DONE AND PT IS COMPLIANT WITH IT USE. PT RINGS APPROPRAITELY FOR ASSISTANCE. CALL MENDES IS WITHIN REACH.
[2018-09-19 04:00] VITALS: BP 119/84
[2018-09-19 07:08] VITALS: BP 127/54
[2018-09-19 15:01] VITALS: BP 135/79
--- NOTE | 2018-09-19 16:31 | NUR ---
PT STABLE THROUGHOUT SHIFT. PT HAD KUB/ X RAY WHICH HE TOLERATED WELL. PT C/O DISCOMFORT BUT STATED PAIN WAS NOT BAD ENOUGH FOR MEDICATION AND ONLY FLARED WHEN HE MOVED AROUND. PT HAD SMALL APPETITE BUT WAS ABLE TO TOLERATE SMALL AMOUNTS OF FOOD. PT RESTING COMFORTABLY.
[2018-09-19 19:48] VITALS: BP 156/98
[2018-09-20 04:40] VITALS: BP 149/86
[2018-09-20 04:41] LABS: CALCIUM 9.4 mg/dL (8.5-10.1); CREATININE 1.1 mg/dL (0.7-1.3); POTASSIUM 3.2 mmol/L (3.5-5.1)
[2018-09-20 08:08] VITALS: BP 139/87
--- NOTE | 2018-09-20 08:10 | NUR ---
ASSESSMENTS CHARTED. PASSING FLATUS, DIET CHANGED TO CLEAR LIQUIDS. FALL PRECAUTIONS IN PLACE. PLAN OF CARE TO CONTINUE ABX, INCREASE DIET AND EXERCISE.
[2018-09-20 19:22] VITALS: BP 142/76
--- NOTE | 2018-09-21 02:27 | NUR ---
ASSUMED PT CARE 1899. PT ALERT AND ORIENTED, REASSESSMENT COMPLETE. VSS. IV DRESSING C/D/I. DENIES N/V. DENIES PAIN. REPORTS PASSING GAS. FALL PRECAUTIONS IN PLACE. CALL LIGHT AND PERSONAL BEOLONGINGS WITHIN REACH. WORKING TOWARD POC. WILL CONTINUE POC UNTIL EOS.
[2018-09-21 03:06] VITALS: BP 137/84
[2018-09-21 05:52] LABS: HEMATOCRIT 37.3 % (42.0-52.0); HEMOGLOBIN 12.3 gm/dL (14.0-18.0); MCH 28.9 pg (26.0-34.0); MCHC 33.1 g/dL (28.0-37.0); MCV 87.3 fL (80.0-100.0); RBC 4.27 mil/uL (4.50-6.00); RDW 14.4 % (10.5-14.5)
[2018-09-21 06:05] LABS: CALCIUM 9.2 mg/dL (8.5-10.1); CREATININE 1.2 mg/dL (0.7-1.3)
[2018-09-21 07:16] VITALS: BP 136/87
--- NOTE | 2018-09-21 07:51 | NUR ---
PATIENT CARE WAS ASSUMED AT 0715.PATIENT IS ASLEEP IN BED.IV IS INTACT WITH FLUIDS INFUSING.PT WILL HAVE CT SCAN WITH CONTRAST.PT'S BASELINE IS ALERT AND ORIENTED X4.AMBULATES X1 ASSIST WITH WALKER.3 LAP SITES FROM SURGERY ARE DRY AND INTACT WITH DERMABOND.0 SKIN ISSUES.PT HAS CALL LIGHT,PHONE AND PERSONAL BELONGINGS WITHIN REACH.
--- NOTE | 2018-09-21 10:48 | NUR ---
DOCTOR WAS NOTIFIED OF PATIENT'S POTASSIUM OF 3.0.PATIENT HAS POTASSIUM IN HIS IV FLUIDS.DOCTOR MAY START PATIENT ON POTASSIUM PROTOCAL FOR REPLACEMENT.
--- NOTE | 2018-09-21 13:26 | NUR ---
Starting day 11 inadequate oral intake. Consider following options: 1. Clinimix PPN at 100ml/hr with 250ml 20% lipids MWF OR 2. TPN 15%dex, 5%AA, 2.9% lipids at goal of 80ml/hr
--- NOTE | 2018-09-21 13:29 | NUR ---
Extended npo/cl status, post op ileus. Made recommendations for PPN vs TPN
[2018-09-21 16:25] VITALS: BP 132/71
--- NOTE | 2018-09-21 17:06 | NUR ---
PT WAS TO HAVE A CT SCAN THIS DAY. CM TO FOLLOW INDICATED WITH DC PLANNING.
[2018-09-21 20:25] VITALS: BP 140/76
--- NOTE | 2018-09-21 23:49 | NUR ---
ASSUMED PT CARE 1899. PT ALERT ADN ORIENTED REASSESSMENT COMPLETE. VSS. IV DRESSING C/D/I. REPORTS PAIN, SEE EMARMercedes MONTGOMERY N/V. WORKING TOWARD POC. CALL LIGHT AND PERSONAL BELONINGS WITHIN REACH, WILL CONTINUE POC UNTIL EOS.
--- NOTE | 2018-09-21 23:51 | NUR ---
ASSUMED PT CARE 1899. PT ALERT AND ORIENTED. REASSESSMENT COMPLETE. VSS. IV DRESSING C/D/I. DENEIS PAIN. DENESI N/V. REPROTS PASSING SOME GAS. STATES FEELING BETTER. WORKING TOAWRD POC. CALL LIGHT AND PERSONAL BELONIGNS WITHIN REACH. WILL CONTINUE POC UUNTIL EOS.
[2018-09-22 03:39] VITALS: BP 133/90
[2018-09-22 05:15] LABS: HEMATOCRIT 36.1 % (42.0-52.0); MCH 28.7 pg (26.0-34.0); MCHC 33.2 g/dL (28.0-37.0); MCV 86.7 fL (80.0-100.0); RBC 4.17 mil/uL (4.50-6.00); RDW 14.6 % (10.5-14.5); WBC 5.8 thou/uL (4.0-11.0)
[2018-09-22 05:39] LABS: CALCIUM 8.8 mg/dL (8.5-10.1); POTASSIUM 3.2 mmol/L (3.5-5.1)
[2018-09-22 08:14] VITALS: BP 143/95
--- NOTE | 2018-09-22 20:03 | NUR ---
ASSUMED CARE OF PT AT 0700. ASSESSMENT CHARTED. A&O,X4. DENIES PAIN. ABD FIRM/DISTENDED, REPORTS TWO BM'S YESTERDAY AND ONE TODAY AFTER SUPPOSITORY GIVEN. LOW K+ NOTED, REPLACEMENT GIVEN ORDERED. K+ NOW 4.4. SURGERY ADVANCED DIET THIS EVENING. SLOWLY PROGRESSING TOWARDS GOALS.
[2018-09-22 20:30] VITALS: BP 144/93
--- NOTE | 2018-09-23 04:05 | NUR ---
ASSUMED PT CARE AROUND 1900. A&OX4. VERY PLEASANT AND COOPERATIVE. DENIES ANY PAIN. PT STATED HE IS PASSING FLATUS. ABDOMEN STILL VERY DISTENDED AND FIRM. PT ATTEMPTED TO HAVE A BOWEL MOVEMENT BUT WAS UNSUCCESSFUL. PT C/O NAUSEA ONCE. HE SLEPT MOST OF THE NIGHT. RESP EVEN AND UNLABORED. IVF AND ABX INFUSING ORDERED. FALL PRECAUTIONS IN PLACE. PROGRESSING VERY SLOWLY TOWARD POC GOALS. WILL CONTINUE TO MONITOR FURTHER.
[2018-09-23 04:51] VITALS: BP 124/71
[2018-09-23 16:30] VITALS: BP 149/59
--- NOTE | 2018-09-23 18:09 | NUR ---
PATIENT AGREEABLE. STATED NO DISCOMFORT - MANUVERS AROUND WITH STAND BY ASSIST. PATIENT STATES DOCTOR TO ASSESS INCISIONS TOMORROW AND DETERMINE WHETHER HE WILL BE DICHARGED. STATED APPETITE STILL POOR BUT HOPING WILL IMPROVE HE RECOVERS. PATIENT REMAINS ON 2L OXYGEN NC - ATE 50 PER CENT OF HIS MEALS.
[2018-09-23 19:55] VITALS: BP 136/79
--- NOTE | 2018-09-24 03:46 | NUR ---
patient assessed and is alert x 4. skin warm and dry. resp even and unlabored. up sitting in chair with family at bedside.HAD A LAP APPENDECTOMY . HAS 3 HEALING INCISIONS IN THE LOWER ABDOMEN. LUNGS CTA-DISM. NO EDEMA NOTED. NO BM TONIGHT. BOTH IV INFILTATED. NEW IV SRESTARTED WITH #22 AND IS INFUSING WELL. SITE HEALTHY. ONLY HAS THE RIGHT FA IV. HAS A POOR APPETITE. UP STANDBY ASSIST TO BATHROOM. VOIDS WELL. VS STABLE. ABDOMEN IS BIG AND NON DISTENDED. HE SAYS HIS STOMACH IS ALWAYS LIKE THAT. REFUSED PAIN MEDICATION. CONT PLAN OF CARE.
[2018-09-24 04:05] VITALS: BP 146/86
[2018-09-24 07:15] VITALS: BP 133/87
[2018-09-24 14:01] VITALS: BP 150/76
[2018-09-24 15:30] VITALS: BP 145/84
--- NOTE | 2018-09-24 17:48 | NUR ---
ASSUMED CARE OF PT AT 0700. ASSESSMENT CHARTED. A&O,X4. DENIES PAIN. ABD SOFT AND ROUND TODAY. REPORTS BM YESTERDAY. NO N/V. TOLERATING PO INTAKE. 2 L NC AT BASELINE. DR. BLACKWOOD AT BEDSIDE, NEW ORDERS TO D/C IVF. PLAN TO D/C TODAY. HH SET UP. NEW D/C ORDERS. NO NEW SCRIPTS. D/C INFORMATION GIVEN TO PT AT BEDSIDE. FAMILY TO JUMP IRON MACHINE PRESSER PT. IV REMOVED, NO BLEEDING NOTED. PT DRESSED IN PERSONAL CLOTHING PRIOR TO D/C. LEFT VIA WHEELCHAIR AT 17:00 IN STABLE CONDITION.
== END 2018-09-24 17:06 | disposition home health service (06) | DRG 338 ==
LOC: ER 08:57 → EROBS 10:50 → 4E 10:50 → 4W 10:50 → 4E 09-18 20:35
PROVIDERS: Emergency Medicine; Hospitalist; Nurse Practitioner; Surgery; ADMIT Internal Medicine
PROC: 0DTJ4ZZ Resection of Appendix, Percutaneous Endoscopic Approach (ICD-10-PCS; principal; 2018-09-09)
DX: K35.32 Acute appendicitis with perforation, localized peritonitis, and gangrene, without abscess (principal); N17.0 Acute kidney failure with tubular necrosis; K56.7 Ileus, unspecified; E46 Unspecified protein-calorie malnutrition; K21.9 Gastro-esophageal reflux disease without esophagitis; E78.00 Pure hypercholesterolemia, unspecified; Z96.612 Presence of left artificial shoulder joint; E78.5 Hyperlipidemia, unspecified; E87.6 Hypokalemia; H40.9 Unspecified glaucoma; N18.9 Chronic kidney disease, unspecified; I12.9 Hypertensive chronic kidney disease with stage 1 through stage 4 chronic kidney disease, or unspecified chronic kidney disease; N40.0 Benign prostatic hyperplasia without lower urinary tract symptoms; F32.9 Major depressive disorder, single episode, unspecified; Z68.32 Body mass index [BMI] 32.0-32.9, adult; Z98.42 Cataract extraction status, left eye; Z98.41 Cataract extraction status, right eye; Z85.46 Personal history of malignant neoplasm of prostate; Z99.81 Dependence on supplemental oxygen
CPT/HCPCS: 10040; 10084; 50010; 50101; 50411; 50555; 50739; 50740; 50900; 51489; 52265; 52266; 52287; 53307; 53312; 53314; 56525; 56526; 62110; 62900; 70005

== ENCOUNTER 2019-03-23 16:31 | Inpatient (IN) | payer OTHER ==
[~2019-03-23] VITALS: Ht 170.2 cm; Wt 95.3 kg
[2019-03-23 16:37] VITALS: BP 121/78
[2019-03-23 17:32] LABS: HEMATOCRIT 40.1 % (42.0-52.0); HEMOGLOBIN 13.1 gm/dL (14.0-18.0); MCH 28.2 pg (26.0-34.0); MCHC 32.6 g/dL (28.0-37.0); MCV 86.5 fL (80.0-100.0); PLATELET COUNT 132 thou/uL (150-400); RBC 4.63 mil/uL (4.50-6.00); RDW 15.5 % (10.5-14.5); WBC 6.6 thou/uL (4.0-11.0)
[2019-03-23 17:40] LABS: ANION GAP 9 mmol/L (7-16); BUN 11 mg/dL (7-18); CALCIUM 8.7 mg/dL (8.5-10.1); CHLORIDE 100 mmol/L (98-107); CO2 31 mmol/L (21-32); CREATININE 1.4 mg/dL (0.7-1.3); GLUCOSE 161 mg/dL (74-106); SODIUM 140 mmol/L (136-145)
[2019-03-23 17:49] LABS: TROPONIN-I <0.06 ng/mL (<0.06)
[2019-03-23 17:57] LABS: ABSOLUTE NEUTROPHILS 4.5 thou/uL (1.4-8.2); ANISOCYTOSIS 1+; PLATELET ESTIMATE SLIGHTLY DECREASED
[2019-03-23 18:25] LABS: HCO3 28.6 mmol/L (22.0-26.0); PCO2 47.7 mmHg (35.0-45.0); PO2 70.6 mmHg (80.0-100.0); pH 7.396 (7.360-7.450)
[2019-03-23 20:39] VITALS: BP 137/79
--- NOTE | 2019-03-23 20:45 | NUR ---
PHONE CALL PLACED TO RECEIVING IN PT UNIT BUT NO ANSWER AT THIS TIME.
--- NOTE | 2019-03-23 21:11 | NUR ---
MULTIPLE ATTEMPTS MADE TO CONTACT RECIEVING UNIT FOR PT TRANSFER BUT TO NO AVAIL. CHARGE NURSE MADE AWARE.
[2019-03-23 21:27] VITALS: BP 124/75
[2019-03-23 21:50] VITALS: BP 147/94
[2019-03-24 00:31] VITALS: BP 131/81
--- NOTE | 2019-03-24 01:40 | NUR ---
PATIENT IS A NEW ADMISSION TO THE UNIT THIS SHIFT. HE ARRIVED VIA CART FROM THE ER AND WAS ABLE TO AMBULATE TO THE BED WITHOUT INCIDENT. PATIENT IS ALERT AND ORIENTED AND ABLE TO PARTICIPATE IN ADMISSION AND CALL APPROPRIATELY FOR NEEDS. BREATHING IS STABLE EVIDENCED BY ASSESSMENT AND SPOT OXYGENATION CHECKS. NURSE TO COMPLETE ADMISSION PROCESS AND INITIATE PLAN OF CARE.
[2019-03-24 05:00] VITALS: BP 124/82
[2019-03-24 06:21] LABS: CALCIUM 8.9 mg/dL (8.5-10.1); CREATININE 1.1 mg/dL (0.7-1.3); POTASSIUM 3.8 mmol/L (3.5-5.1)
[2019-03-24 08:02] VITALS: BP 126/84
--- NOTE | 2019-03-24 12:27 | NUR ---
INITIAL ASSESSMENT: Received consult. SW reviewed chart and spoke with nursing and attending physician. Pt was admitted from home due to hypoxia/bronchitis. SW met with pt at bedside. Introduced role of SW. Pt is alert/orientated x 4. Pt reports he lives at home with his . Prior to admission, pt was independent with ADLs. Pt does use a cane. 5 steps to enter the house. Pt has home O2 and trilogy through [facility]. Pt states he is on 2-4L at home. Pt has used [facility] in the past for home health. Pt's PCP is Dr. Lynch. Pt's goal is to return home. Therapy ordered to evaluate pt. SW is following to assist as needed with discharge planning.
--- NOTE | 2019-03-24 12:34 | EKG ---
[facility] [place] [address] ELECTROCARDIOGRAM REPORT Name: SP WILSON Room #: 360-P ADM IN M.R.#: [id number] Admission: 03/23/19 Attend Phys: Bob Cintron MD Discharge: Date of : 32 Report #: [id number] THIS REPORT FOR: cc: Yuval Lynch,Sánchez Alex MD [facility] THIS REPORT FOR: //name// [facility] ED Test Date: 2019-03-23 Test Time: 16:46:24 Pat Name: SP WILSON Department: Room: 360 Gender: M Watershed Manager: ATTILA : 1930 Requested By: Mary Lou Blake Order Number: [id number] MD: Sánchez Almodovar Measurements Intervals [place] Rate: 103 P: 50 MS: 176 QRS: 31 QRSD: 106 T: QT: 356 QTc: 466 Interpretive Statements Sinus tachycardia Inferior infarct, old Compared to ECG 03/07/2018 14:21:28 Atrial premature complex(es) no longer present Electronically Signed On 03-24-2019 8:51:37 PROCESS DEVELOPMENT ASSOCIATE by Sánchez Almodovar [email or web address] <ELECTRONICALLY SIGNED> By: Sánchez Almodovar MD, [facility] 03/24/19 0851 [id number] Sánchez Almodovar MD, [facility] /EPI
[2019-03-24 12:35] VITALS: BP 142/88
--- NOTE | 2019-03-24 15:06 | NUR ---
assumed care of pt at 0700. pt alert and oriented in no acute distress. voicing no complaints or concerns. ambulating around hallways with supervision. using urinal. vitals stable. whz/dim to auscultation. on home dose O2. will cont to monitor.
[2019-03-24 15:20] VITALS: BP 123/79
[2019-03-24 20:16] VITALS: BP 137/83
[2019-03-25 04:05] VITALS: BP 129/77
[2019-03-25 07:28] VITALS: BP 120/64
--- NOTE | 2019-03-25 07:40 | NUR ---
ASSUMED CARE AT 1900, ASSESSMENT COMPLETED. PT DENIED PAIN OR NAUSEA; REPORTS SOB WITH ACTIVITY, HAS NONPRODUCTIVE COUGH AND WHEEZY LUNG SOUNDS. GIVEN IV STEROIDS. SATS WELL ON 3L O2. NO OTHER CONCERNS, SHIFT REPORT GIVEN AT 0700.
[2019-03-25 15:35] VITALS: BP 152/96
--- NOTE | 2019-03-25 18:29 | NUR ---
PT is A&OX3, PT is continuing IV abx and o2 3L/MIN/NC, PT'vs are stable, pt gets up to chair with assist, pt denies pain and sob at this time.
[2019-03-25 19:31] VITALS: BP 149/79
[2019-03-26 04:58] VITALS: BP 153/87
[2019-03-26 07:29] VITALS: BP 154/89
--- NOTE | 2019-03-26 08:27 | NUR ---
ASSUMED CARE AT 1900, ASSESSMENT COMPLETED. PT DENIED PAIN, NAUSEA, OR SOB. UP TO BATHROOM TO SHAVE AND CLEAN UP, PT TOLERATED WELL WITHOUT EXCESSIVE SOB; MAINTAINED SATS ON 3L O2. LUNGS STILL WHEEZY RIGHT WORSE THAN LEFT, BUT OVERALL IMPROVED SINCE PREVIOUS NIGHT. HR LAURIE TO UPPER 40'S OVERNIGHT. NO OTHER CONCERNS, SHIFT REPORT GIVEN AT 0700.
[2019-03-26 11:33] LABS: BE(vivo) 7.3 mmol/L (-2 to +3); HCO3 32.9 mmol/L (22.0-26.0); PCO2 50.3 mmHg (35.0-45.0); PO2 87.4 mmHg (80.0-100.0); pH 7.434 (7.360-7.450); sO2 96.8 % (92.0-98.0)
[2019-03-26 11:53] LABS: HEMATOCRIT 38.5 % (42.0-52.0); HEMOGLOBIN 12.4 gm/dL (14.0-18.0); MCH 27.9 pg (26.0-34.0); MCHC 32.3 g/dL (28.0-37.0); MCV 86.4 fL (80.0-100.0); RBC 4.46 mil/uL (4.50-6.00); RDW 15.3 % (10.5-14.5); WBC 11.1 thou/uL (4.0-11.0)
[2019-03-26 12:09] LABS: CALCIUM 8.8 mg/dL (8.5-10.1); CREATININE 1.2 mg/dL (0.7-1.3); POTASSIUM 3.4 mmol/L (3.5-5.1)
[2019-03-26] MEDS ORDERED: PREDNISONE 5 MG5 M1 PO (13:28)
[2019-03-26] MEDS ORDERED: MUCINEX600 MG PO (13:28)
[2019-03-26] MEDS ORDERED: DELSYM COU30 MG/5 M1 PO (13:28)
[2019-03-26] MEDS ORDERED: ACETAMINOPHEN325 M1 PO (13:28)
[2019-03-26] MEDS ORDERED: LEVAQUIN 500 M500 M3 PO (13:28)
[2019-03-26 15:24] VITALS: BP 154/89
[2019-03-26 16:03] VITALS: BP 159/104
--- NOTE | 2019-03-26 16:11 | NUR ---
DISCHARGE NOTE: SW reviewed chart and spoke with nursing and attending physician. Pt is medically stable for discharge home today. Orders written for HH services. SW met with pt at bedside to discuss discharge plan. Pt declines HH services at this time. Pt's family to provide transportation home. SW encouraged pt to contact his PCP's office if he needs HH services in the future. Pt verbalized understanding. No additional SW needs identified at this time, but is available to assist should needs arise.
--- NOTE | 2019-03-26 20:09 | NUR ---
PT is A&OX3, PT'S sob has improved, pt was DC to home at 1730pm, RN has diving pt and pt's family DC TEACHING, Both understand well.
== END 2019-03-26 17:25 | disposition home or self-care (01) | DRG 682 ==
LOC: ER 16:31 → EROBS 19:35 → 3W 19:35 → ENTRNSPT 03-26 17:06 → 3W 03-26 17:25
PROVIDERS: Emergency Medicine Emergency Medical Services; Nurse Practitioner Family; ADMIT Internal Medicine
DX: N17.0 Acute kidney failure with tubular necrosis (principal); J96.22 Acute and chronic respiratory failure with hypercapnia; G92 Toxic encephalopathy; J96.21 Acute and chronic respiratory failure with hypoxia; E66.2 Morbid (severe) obesity with alveolar hypoventilation; E87.6 Hypokalemia; K21.9 Gastro-esophageal reflux disease without esophagitis; I10 Essential (primary) hypertension; E78.00 Pure hypercholesterolemia, unspecified; N40.0 Benign prostatic hyperplasia without lower urinary tract symptoms; J44.9 Chronic obstructive pulmonary disease, unspecified; G47.00 Insomnia, unspecified; D72.829 Elevated white blood cell count, unspecified; E78.5 Hyperlipidemia, unspecified; Z96.612 Presence of left artificial shoulder joint; Z98.42 Cataract extraction status, left eye; Z98.41 Cataract extraction status, right eye; Z85.46 Personal history of malignant neoplasm of prostate; Z79.51 Long term (current) use of inhaled steroids; Z79.899 Other long term (current) drug therapy; Z72.89 Other problems related to lifestyle; Z87.01 Personal history of pneumonia (recurrent); Z99.81 Dependence on supplemental oxygen; Z68.32 Body mass index [BMI] 32.0-32.9, adult; Z92.3 Personal history of irradiation
CPT/HCPCS: 10879

== ENCOUNTER → 2020-03-28 | Outpatient (CLI) | payer OTHER ==
[~2020-03-28] MED LIST changes: +ACETAMINOPHEN325 M1 PO; +DELSYM COU30 MG/5 M1 PO; +LEVAQUIN 500 M500 M3 PO; +PREDNISONE 5 MG5 M1 PO
== END ==
LOC: LAB 08:00
PROVIDERS: ATTEND Internal Medicine
DX: Z01.812 Encounter for preprocedural laboratory examination (principal); Z20.822 Contact with and (suspected) exposure to COVID-19

== ENCOUNTER → 2020-04-01 | Outpatient (CLI) | payer OTHER ==
--- NOTE | 2020-04-10 12:19 | SLE ---
[facility] [place] [address] POLYSOMNOGRAPHY STUDY Name: SP WILSON Room #: REG [facility]#: [id number] Admission: 04/01/20 Attend Phys: Mckinley Quezada MD Discharge: Date of : 31 Report #: [id number] THIS REPORT FOR: cc: Yuval Lynch,Adi Ma MD ~ DATE OF SERVICE: 04/02/2020 SLEEP STUDY ATTENDING PHYSICIAN: Mckinley Quezada MD The patient is an 89-year-old who weighs 210 pounds with a BMI of 32.9. The patient's [place] score was 0. The patient underwent split night study performed at [facility]. During the night study, the patient spent 422 minutes in bed and slept for 317 minutes with a sleep efficiency of 75%. Sleep latency was 5.9 minutes with a REM latency of 157 minutes. Sleep architecture showed increased stage 1 and stage 2 sleep, absent slow wave and reduced REM sleep, which was 14% of total sleep time. During the initial diagnostic portion of the study, the patient slept for 158 minutes. During that time, the patient had 22 obstructive apneas, no mixed apneas and 1 central apnea and 168 hypopneas. The patient's AHI was 72.5 per hour with a supine AHI of 100.8 per hour and a REM AHI of 91 per hour. EKG monitoring revealed a mean heart rate of 79 beats per minute. No sustained arrhythmias observed. PLMS were seen at an index of 83 per hour and 6.8 per hour caused EEG arousals. However, when the patient slept on CPAP, the patient's PLM completely resolved. Nocturnal oximetry study during the diagnostic portion revealed an average oxygen saturation of 85% with the lowest of 66%. 146 minutes were spent with oxygen saturation of less than 89%. The patient met the criteria for CPAP initiation. It was started at 7 cm water and titrated up to 15 cm water. At the final pressure, the patient slept for 59 minutes including 3.5 minutes of supine REM sleep. The patient's AHI improved to 8.1 per hour and oxygen saturations remained above 88%. I would recommend the patient should be placed on 16 cm water. IMPRESSION: 1. Severe obstructive sleep apnea at an AHI of 72.5 [place] [address] POLYSOMNOGRAPHY STUDY Name: SP WILSON Room #: REG [facility]#: [id number] Admission: 04/01/20 Attend Phys: Mckinley Quezada MD Discharge: Date of : 31 Report #: [id number] 2. Nocturnal hypoxia secondary to obstructive sleep apnea, but resolved with CPAP. 3. Severe periodic limb movements, but resolved while the patient slept on CPAP. RECOMMENDATIONS: 1. CPAP at 16 cm water should be used on a nightly basis. 2. Follow up in 4-6 weeks to assess compliance with CPAP and to document clinical improvement. 3. Weight loss is advised. 4. Avoid CORRECTIONAL THERAPY TEACHER depressants. 5. Cautioned regarding driving until symptoms of sleep apnea resolve with the use of CPAP. <ELECTRONICALLY SIGNED> By: Adi Orlando MD 04/10/20 1219 0931 [id number] Adi Orlando MD /nt
== END ==
LOC: SLEEPLAB 13:58
PROVIDERS: ATTEND Internal Medicine
DX: G47.30 Sleep apnea, unspecified (principal); R09.02 Hypoxemia; G25.89 Other specified extrapyramidal and movement disorders

== ENCOUNTER → 2020-07-12 | Outpatient (CLI) | payer OTHER ==
--- NOTE | 2020-07-12 11:57 | 2DMMODE ---
[facility] [place] [address] 2 D/M-MODE ECHOCARDIOGRAM Name: SP WILSON Room #: REG [facility]#: [id number] Admission: 07/12/20 Attend Phys: Mckinley Quezada MD Discharge: Date of : 31 Report #: [id number] THIS REPORT FOR: cc: Yuavl Lynch,Roberto Call MD [facility] ~ APPROVED REPORT Study performed: 07/12/2020 10:05:39 EXAM: Comprehensive 2D, Doppler, and color-flow Echocardiogram Patient Location: Out-Patient Room #: 2 Status: routine BSA: 2.07 HR: 86 bpm BP: 138/80 mmHg Rhythm: NSR Other Information Study Quality: Adequate Indications Dyspnea Hypertension/HDD 2D Dimensions RVDd: 31.93 mm IVSd: 10.96 (7-11mm) LVOT Diam: 21.10 (18-24mm) LVDd: 48.46 mm PWd: 11.28 (7-11mm) Ascending Ao: 40.14 (22-36mm) LVDs: 30.49 (25-40mm) Left Atrium: 38.70 (27-40mm) Aortic Root: 38.37 mm IVC: 18.00 mm Volumes Left Atrial Volume (Systole) Single Plane 4CH: 63.12 mL Single Plane 2CH: 41.93 mL LA ESV Index: 30.00 mL/m2 Aortic Valve AoV Peak Amador.: 2.88 m/s AO Peak Gr.: 33.14 mmHg LVOT Max P.66 mmHg AO Mean Gr.: 19.38 mmHg LVOT Mean P.32 mmHg [facility] [address] [place] [address] 2 D/M-MODE ECHOCARDIOGRAM Name: SP WILSON Room #: REG [facility]#: [id number] Admission: 07/12/20 Attend Phys: Mckinley Quezada, Discharge: Date of : 31 Report #: [id number] AO V2 Mean: 2.06 m/s LVOT Max V: 1.27 m/s AO V2 VTI: 62.71 cm LVOT Mean V: 0.84 m/s RYDER (VTI): 1.55 cm2 LVOT V1 VTI: 27.84 cm RYDER Vmax: 1.54 cm2 SV (LVOT): 97.29 mL Mitral Valve E/A Ratio: 0.8 MV Decel. Time: 289.51 ms MV E Max Amador.: 1.04 m/s MV A Amador.: 1.33 m/s MV PHT: 83.96 ms IVRT: 110.73 ms Pulmonary Valve PV Peak Amador.: 0.95 m/s PV Peak Gr.: 3.62 mmHg Pulmonary Vein P Vein S: 0.52 m/s P Vein A: 0.26 m/s P Vein D: 0.29 m/s P Vein A Dur.: 106.1 msec P Vein S/D Ratio: 1.79 Tricuspid Valve TR Peak Amador.: 2.65 m/s TR Peak Gr.: 28.10 mmHg PA Pressure: 33.00 mmHg Left Ventricle The left ventricle is normal size. There is normal LV segmental wall motion. There is normal left ventricular wall thickness. The left ventricular systolic function is normal. The left ventricular ejection fraction is within the normal range. LVEF is 60-65%. Grade I - abnormal relaxation pattern. Right Ventricle The right ventricle is normal size. The right ventricle is borderline hypertrophied. The right ventricular systolic function is normal. Atria The left atrium size is normal. The right atrium size is normal. Aortic Valve The aortic valve is normal in structure. Aortic valve is calcified. No aortic regurgitation is present. Mild aortic stenosis. [address] [address] 2 D/M-MODE ECHOCARDIOGRAM Name: SP WILSON Room #: REG [facility]#: [id number] Admission: 07/12/20 Attend Phys: Mckinley Quezada, Discharge: Date of : 31 Report #: [id number] Mitral Valve The mitral valve is normal in structure. Trace mitral regurgitation. No evidence of mitral valve stenosis. Tricuspid Valve The tricuspid valve is normal in structure. There is trace tricuspid regurgitation. Estimated PAP 33 mmHg. There is mild pulmonary hypertension. Pulmonic Valve The pulmonary valve is normal in structure. There is no pulmonic valvular regurgitation. Great Vessels The aortic root is normal in size. IVC is normal in size and collapses >50% with inspiration. Pericardium There is no pericardial effusion. <Conclusion> Normal left ventricle size/wall thickness Ejection fraction 60% Grade 1 diastolic dysfunction Normal right ventricle size/function Normal atrial size Color-flow Doppler study performed of the aortic/mitral/tricuspid/pulmonary valve Aortic valve not well seen, mildly calcified Mild aortic valve stenosis mean gradient of 19 mmHg Normal mitral valve structure and function Trace tricuspid valve insufficiency Pulmonary systolic pressure estimated 33 mmHg Normal aortic root size No pericardial effusion <ELECTRONICALLY SIGNED> By: Roberto Wen MD, FACC 07/12/20 1157 1157 1157 Roberto Wen MD, FACC /INF
== END ==
LOC: CV 10:45
PROVIDERS: ATTEND Internal Medicine
DX: I35.0 Nonrheumatic aortic (valve) stenosis (principal); I27.20 Pulmonary hypertension, unspecified; J45.50 Severe persistent asthma, uncomplicated

== ENCOUNTER → 2020-09-07 | Outpatient (CLI) | payer OTHER ==
--- NOTE | ~2020-09-07 | MCT ---
[facility] [place] [address] METHACHOLINE CHALLENGE TEST Name: SP WILSON Room #: REG [facility] Garza#: [id number] Admission: 09/07/20 Attend Phys: Mckinley Quezada MD Discharge: Date of : 31 Report #: [id number] THIS REPORT FOR: //name// COPIES FOR: AGE: 89 SEX/RACE: M/B Height: 68 in Exam Date: 09/07/20 Weight: 206 lbs BTPS: X >> PRE BRONCHODILATOR: PREDICTED BEST %PRED FORCED VITAL CAPACITY (FRC) 3.60 L LPM % FORCED EXP VOL/SEC (FEV1) 2.15 L FEV/FVC % MAX MID-EXP FLOW (FEF 25-75) 1.70 L/SEC L/SEC % PEAK EXP FLOW RATE (FEF MAX) 7.12 L/MIN L/MIN MED-VC RATIO (FEF 50/FEF 50) .09 Baseline: Phenol Saline Level 1: 0.025 mg/ml BEST %PRED %CHANGE BEST %PRED %CHANGE FVC 2.29 L 64 % % FVC 2.18 L 61 % -5 % FEV1 1.45 L 67 % % FEV1 1.46 L 68 % 1 % Level 2: 0.25 mg/ml Level 3: 2.5 mg/ml BEST %PRED %CHANGE BEST %PRED %CHANGE FVC 2.07 L 58 % -10 % FVC 2.06 L 57 % -10 % FEV1 1.37 L 64 % -5 % FEV1 1.30 L 61 % -10 % . Level 4: 10 mg/ml Level 5: 25 mg/ml BEST %PRED %CHANGE BEST %PRED %CHANGE FVC 2.06 L 57 % -10 % FVC 1.56 L 43 % -32 % FEV1 1.22 L 57 % -15 % FEV1 1.01 L 47 % -30 % Post Bronchodilator: 1st Treatment Post Bronchodilator: 2nd Treatment BEST %PRED %CHANGE BEST %PRED %CHANGE FVC 2.22 L 62 % -3 % FVC L % % FEV1 1.25 L 58 % -13 % FEV1 L % % Post Bronchodilator: 3rd Treatment BEST %PRED %CHANGE FVC L % % [facility] [address] [place] [address] METHACHOLINE CHALLENGE TEST Name: SP WILSON Room #: [facility]#: [id number] Admission: 09/07/20 Attend Phys: Mckinley Quezada MD Discharge: Date of : 31 Report #: [id number] FEV1 L % % >> INTERPRETATION: DATE OF SERVICE: 09/07/2020 METHACHOLINE CHALLENGE TEST ATTENDING PHYSICIAN: Dr. Mckinley Quezada. METHACHOLINE CHALLENGE: Methacholine challenge test was completed in routine standard fashion using increasing doses of methacholine as per guidelines. Baseline FEV1 is 1.45 liters (67%), baseline FVC is 2.29 liters (64% predicted). With increasing doses of methacholine, upon reaching the fourth increased dose at 1.0, there was a significant decline in his FEV1. FEV1 decreased to 1.22 liters which was a 15% change and increased further at the next dose with an FEV1 of 1.01 liters (30% change). He was given albuterol per guidelines with appropriate response and recovery of his FEV1. IMPRESSION: This is a positive methacholine challenge test. By: Kip Smalls MD /nt
== END ==
LOC: PUL 11:06
PROVIDERS: ATTEND Internal Medicine
DX: Z20.822 Contact with and (suspected) exposure to COVID-19 (principal); J96.11 Chronic respiratory failure with hypoxia; J45.50 Severe persistent asthma, uncomplicated

== ENCOUNTER → 2020-12-14 | Outpatient (CLI) | payer OTHER | LOC: RAD 12:34 | PROVIDERS: ATTEND Internal Medicine | DX: R91.1 Solitary pulmonary nodule (principal); I51.7 Cardiomegaly; R06.00 Dyspnea, unspecified ==